=== PATIENT | male | born 1975 | race Caucasian/White ===

== ENCOUNTER 2016-09-12 14:18 | Emergency (ER) | payer OTHER ==
[~2016-09-12] VITALS: Ht 165.1 cm; Wt 82.6 kg
[~2016-09-12 14:18] MED LIST: AMLODIPINE BESYL5 MG; AUGMENTIN 875875 MG PO; CARVEDILOL12.5 MG PO; CELEXA40 MG PO; CIPRO500 MG PO; CIPROFLOXACIN250 M2 PO; CIPROFLOXACIN500 M1 PO; COLACE100 MG PO; DILAUDID 2 MG TA2 MG PO; FLAGYL500 MG PO; FLEXERIL PO; HYDROCHLOROTHIA25 M1; HYDROCHLOROTHIA25 M1 PO; HYDROCODONE-AP1 EAC6 PO; IBUPROFEN 600600 M1 PO; IBUPROFEN 800800 M1 PO; LISINOPRIL-HCT1 EAC2 PO; LISINOPRIL20 MG; LISINOPRIL40 MG PO; LORTAB 10 MG-3473 ML PO; MEDROLDOSEPACK PO; METOPROLOL SUCC25 M1 PO; NAPROSYN500 MG PO; NORCO 5-325 TA1 EACH PO; NORCO 7.5-3251 EACH PO; NORFLEX100 MG PO; NORVASC 5 MG TAB5 MG PO; ONDANSETRON HCL4 M2 PO; PERCOCET 5-3251 EACH PO; PERCOCET 7.5-31 EACH PO; PERCOCET PO; PHENERGAN 25 MG25 M1 PO; PREDNISONE 20 M20 M1 PO; PREDNISONE 20 M20 MG PO; PREDNISONE 5 MG5 M1 PO; TOPROL XL25 MG; ULTRAM 50MG TAB50 MG PO; ZOFRAN ODT4 M1 PO; ZOFRAN ODT4 MG PO
[2016-09-12] MEDS ORDERED: NORVASC10 MG PO (14:41)
[2016-09-12 14:52] LABS: ABSOLUTE NEUTROPHILS 10.3 thou/uL (1.4-8.2); BASOPHILS 0.2 % (0.0-2.0); HEMATOCRIT 39.5 % (42.0-52.0); HEMOGLOBIN 13.6 gm/dL (14.0-18.0); LYMPHOCYTES 14.9 % (24.0-44.0); MCHC 34.5 g/dL (28.0-37.0); MONOCYTES 8.8 % (1.0-8.0); PLATELET COUNT 328 thou/uL (150-400); POLYS 76.1 % (36.0-66.0); RBC 4.38 mil/uL (4.50-6.00); RDW 13.8 % (10.5-14.5); WBC 13.6 thou/uL (4.0-11.0)
[2016-09-12 14:53] LABS: MANUAL DIFF NO
[2016-09-12 14:58] LABS: CALCIUM 9.2 mg/dL (8.5-10.1); POTASSIUM 3.9 mmol/L (3.5-5.1)
[2016-09-12 15:02] LABS: ALBUMIN 3.8 g/dL (3.4-5.0); TOTAL BILIRUBIN 0.1 mg/dL (<0.1-1.0); TOTAL PROTEIN 6.9 g/dL (6.4-8.2)
[2016-09-12 16:36] LABS: URINE BILIRUBIN NEGATIVE (Negative); URINE BLOOD NEGATIVE (Negative); URINE COLOR YELLOW; URINE GLUCOSE-RANDOM* NEGATIVE (Negative); URINE KETONES NEGATIVE (Negative); URINE LEUKOCYTES-REFLEX NEGATIVE (Negative); URINE PROTEIN (DIPSTICK) NEGATIVE (Negative); URINE UROBILINOGEN 0.2 E.U./dl (0.2-1.0)
[2016-09-12] MEDS ORDERED: FLAGYL500 MG PO (17:41)
[2016-09-12] MEDS ORDERED: ONDANSETRON HCL4 M2 PO (17:41)
[2016-09-12] MEDS ORDERED: CIPRO500 MG PO (17:41)
== END 2016-09-12 18:18 | disposition home or self-care (01) ==
LOC: ER 14:18
PROVIDERS: Physician Assistant
DX: M54.5 Low back pain (principal); K57.92 Diverticulitis of intestine, part unspecified, without perforation or abscess without bleeding; D72.829 Elevated white blood cell count, unspecified; R74.0 Nonspecific elevation of levels of transaminase and lactic acid dehydrogenase [LDH]; I10 Essential (primary) hypertension; Z90.89 Acquired absence of other organs; Z90.49 Acquired absence of other specified parts of digestive tract; F17.220 Nicotine dependence, chewing tobacco, uncomplicated

== ENCOUNTER 2016-11-03 07:02 | Emergency (ER) | payer OTHER ==
[~2016-11-03] VITALS: Ht 165.1 cm; Wt 82.6 kg
[~2016-11-03 07:02] MED LIST changes: +NORVASC10 MG PO
[2016-11-03 07:57] LABS: ABSOLUTE NEUTROPHILS 4.2 thou/uL (1.4-8.2); BASOPHILS 0.6 % (0.0-2.0); EOSINOPHILS 1.8 % (0.0-3.0); HEMATOCRIT 40.5 % (42.0-52.0); HEMOGLOBIN 13.9 gm/dL (14.0-18.0); LYMPHOCYTES 16.3 % (24.0-44.0); MCH 31.1 pg (26.0-34.0); MCHC 34.3 g/dL (28.0-37.0); MCV 90.8 fL (80.0-100.0); MONOCYTES 9.9 % (1.0-8.0); PLATELET COUNT 273 thou/uL (150-400); POLYS 71.4 % (36.0-66.0); RBC 4.46 mil/uL (4.50-6.00); RDW 14.1 % (10.5-14.5); WBC 5.9 thou/uL (4.0-11.0)
[2016-11-03 07:58] LABS: MANUAL DIFF NO
[2016-11-03 08:04] LABS: CALCIUM 8.8 mg/dL (8.5-10.1); CREATININE 0.9 mg/dL (0.7-1.3); POTASSIUM 4.6 mmol/L (3.5-5.1)
[2016-11-03 08:10] LABS: PROTIME 9.4 Seconds (9.3-11.4)
[2016-11-03 08:16] LABS: URINE BILIRUBIN NEGATIVE (Negative); URINE BLOOD NEGATIVE (Negative); URINE COLOR YELLOW; URINE GLUCOSE-RANDOM* NEGATIVE (Negative); URINE KETONES NEGATIVE (Negative); URINE NITRITE NEGATIVE (Negative); URINE PROTEIN (DIPSTICK) NEGATIVE (Negative); URINE SPECIFIC GRAVITY <= 1.005 (1.003-1.035); URINE UROBILINOGEN 0.2 E.U./dl (0.2-1.0)
== END 2016-11-03 13:29 | disposition home or self-care (01) ==
LOC: ER 07:02
PROVIDERS: Emergency Medicine
DX: G89.29 Other chronic pain (principal); R10.13 Epigastric pain; R10.11 Right upper quadrant pain; I10 Essential (primary) hypertension; F17.220 Nicotine dependence, chewing tobacco, uncomplicated; Z90.89 Acquired absence of other organs; Z87.442 Personal history of urinary calculi; Z90.49 Acquired absence of other specified parts of digestive tract

== ENCOUNTER 2017-02-03 07:14 | Emergency (ER) | payer OTHER ==
[~2017-02-03] VITALS: Ht 165.1 cm; Wt 95.3 kg
[2017-02-03 07:39] LABS: ABSOLUTE NEUTROPHILS 5.6 thou/uL (1.4-8.2); BASOPHILS 1.1 % (0.0-2.0); EOSINOPHILS 2.1 % (0.0-3.0); HEMOGLOBIN 14.2 gm/dL (14.0-18.0); LYMPHOCYTES 13.6 % (24.0-44.0); MCH 31.8 pg (26.0-34.0); MCHC 35.5 g/dL (28.0-37.0); MCV 89.6 fL (80.0-100.0); PLATELET COUNT 303 thou/uL (150-400); POLYS 75.2 % (36.0-66.0); RBC 4.46 mil/uL (4.50-6.00); RDW 14.4 % (10.5-14.5); WBC 7.5 thou/uL (4.0-11.0)
[2017-02-03 07:43] LABS: MANUAL DIFF NO
[2017-02-03 07:48] LABS: CALCIUM 9.4 mg/dL (8.5-10.1); CREATININE 0.9 mg/dL (0.7-1.3); POTASSIUM 4.4 mmol/L (3.5-5.1)
[2017-02-03 07:54] LABS: ALBUMIN 3.7 g/dL (3.4-5.0); TOTAL BILIRUBIN 0.3 mg/dL (<0.1-1.0); TOTAL PROTEIN 7.3 g/dL (6.4-8.2)
[2017-02-03 08:50] LABS: URINE BILIRUBIN NEGATIVE (Negative); URINE BLOOD NEGATIVE (Negative); URINE COLOR YELLOW; URINE GLUCOSE-RANDOM* NEGATIVE (Negative); URINE KETONES NEGATIVE (Negative); URINE LEUKOCYTES-REFLEX NEGATIVE (Negative); URINE PROTEIN (DIPSTICK) NEGATIVE (Negative); URINE UROBILINOGEN 0.2 E.U./dl (0.2-1.0)
[2017-02-03] MEDS ORDERED: CIPROFLOXACIN500 M1 PO (09:33)
[2017-02-03] MEDS ORDERED: ZOFRAN ODT4 MG PO (09:33)
[2017-02-03] MEDS ORDERED: FLAGYL500 MG PO (09:33)
[2017-02-03] MEDS ORDERED: NORCO 5-325 TA1 EACH PO (09:33)
[2017-02-03] MEDS ORDERED: COLACE100 MG PO (09:33)
== END 2017-02-03 09:58 | disposition home or self-care (01) ==
LOC: ER 07:14
PROVIDERS: Emergency Medicine
DX: K57.92 Diverticulitis of intestine, part unspecified, without perforation or abscess without bleeding (principal); I10 Essential (primary) hypertension; F17.220 Nicotine dependence, chewing tobacco, uncomplicated; Z87.442 Personal history of urinary calculi; Z90.49 Acquired absence of other specified parts of digestive tract; Z98.890 Other specified postprocedural states

== ENCOUNTER 2017-02-05 07:48 | Emergency (ER) | payer OTHER ==
[~2017-02-05] VITALS: Ht 177.8 cm; Wt 83.9 kg
--- NOTE | ~2017-02-05 | EKG ---
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
[2017-02-05 08:28] LABS: ABSOLUTE NEUTROPHILS 4.9 thou/uL (1.4-8.2); BASOPHILS 1.1 % (0.0-2.0); EOSINOPHILS 2.2 % (0.0-3.0); HEMATOCRIT 40.5 % (42.0-52.0); HEMOGLOBIN 14.2 gm/dL (14.0-18.0); LYMPHOCYTES 14.4 % (24.0-44.0); MCH 31.6 pg (26.0-34.0); MCV 90.1 fL (80.0-100.0); MONOCYTES 7.3 % (1.0-8.0); PLATELET COUNT 285 thou/uL (150-400); RDW 14.4 % (10.5-14.5); WBC 6.6 thou/uL (4.0-11.0)
[2017-02-05 08:30] LABS: MANUAL DIFF NO
[2017-02-05 08:36] LABS: CALCIUM 9.2 mg/dL (8.5-10.1); POTASSIUM 5.3 mmol/L (3.5-5.1)
[2017-02-05 08:42] LABS: ALBUMIN 3.7 g/dL (3.4-5.0); TOTAL BILIRUBIN 0.2 mg/dL (<0.1-1.0); TOTAL PROTEIN 7.4 g/dL (6.4-8.2)
[2017-02-05] MEDS ORDERED: ZOFRAN ODT4 MG PO (10:54)
== END 2017-02-05 10:51 | disposition home or self-care (01) ==
LOC: ER 07:48
PROVIDERS: Emergency Medicine
DX: R10.32 Left lower quadrant pain (principal); R11.2 Nausea with vomiting, unspecified; R19.7 Diarrhea, unspecified; I10 Essential (primary) hypertension; F17.220 Nicotine dependence, chewing tobacco, uncomplicated; Z87.442 Personal history of urinary calculi; Z90.49 Acquired absence of other specified parts of digestive tract; Z90.89 Acquired absence of other organs

== ENCOUNTER 2017-02-07 11:32 | Emergency (ER) | payer OTHER ==
[~2017-02-07] VITALS: Ht 165.1 cm; Wt 95.3 kg
[2017-02-07 12:32] LABS: ABSOLUTE NEUTROPHILS 5.1 thou/uL (1.4-8.2); BASOPHILS 1.1 % (0.0-2.0); EOSINOPHILS 1.2 % (0.0-3.0); HEMATOCRIT 43.7 % (42.0-52.0); HEMOGLOBIN 14.9 gm/dL (14.0-18.0); MCV 91.2 fL (80.0-100.0); MONOCYTES 8.8 % (1.0-8.0); PLATELET COUNT 316 thou/uL (150-400); POLYS 68.9 % (36.0-66.0); RBC 4.79 mil/uL (4.50-6.00); RDW 14.3 % (10.5-14.5); WBC 7.4 thou/uL (4.0-11.0)
[2017-02-07 12:33] LABS: MANUAL DIFF NO
[2017-02-07 12:41] LABS: ANION GAP 5 mmol/L (7-16); BUN 12 mg/dL (7-18); CALCIUM 9.7 mg/dL (8.5-10.1); CHLORIDE 102 mmol/L (98-107); CO2 28 mmol/L (21-32); CREATININE 1.2 mg/dL (0.7-1.3); GLUCOSE 106 mg/dL (74-106); POTASSIUM 4.9 mmol/L (3.5-5.1); SODIUM 135 mmol/L (136-145)
[2017-02-07 12:54] LABS: ALBUMIN 4.2 g/dL (3.4-5.0); ALKALINE PHOSPHATASE 260 U/L (46-116); DIRECT BILIRUBIN < 0.1 mg/dL (<0.1-0.3); SGOT 51 U/L (15-37); SGPT 131 U/L (30-65); TOTAL BILIRUBIN 0.3 mg/dL (<0.1-1.0); TOTAL PROTEIN 7.9 g/dL (6.4-8.2)
[2017-02-07 13:45] LABS: URINE BILIRUBIN NEGATIVE (Negative); URINE BLOOD NEGATIVE (Negative); URINE COLOR YELLOW; URINE GLUCOSE-RANDOM* NEGATIVE (Negative); URINE KETONES NEGATIVE (Negative); URINE NITRITE NEGATIVE (Negative); URINE PROTEIN (DIPSTICK) NEGATIVE (Negative); URINE UROBILINOGEN 0.2 E.U./dl (0.2-1.0)
[2017-02-07] MEDS ORDERED: PHENERGAN 25 MG25 M1 PO (14:32)
== END 2017-02-07 15:08 | disposition home or self-care (01) ==
LOC: ER 11:32
PROVIDERS: Nurse Practitioner
DX: R10.32 Left lower quadrant pain (principal); R11.2 Nausea with vomiting, unspecified; R19.7 Diarrhea, unspecified; I10 Essential (primary) hypertension; F17.220 Nicotine dependence, chewing tobacco, uncomplicated; Z87.442 Personal history of urinary calculi; Z90.49 Acquired absence of other specified parts of digestive tract; Z98.890 Other specified postprocedural states

== ENCOUNTER 2017-10-17 04:15 | Emergency (ER) | payer OTHER ==
[~2017-10-17] VITALS: Ht 165.1 cm; Wt 86.6 kg
--- NOTE | ~2017-10-17 | EKG ---
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 : 1975 Requested By: Douglas Jordan Order Number: [id number] MD: Bandar Rodriguez Measurements Intervals [place] Rate: 94 P: 25 MA: 166 QRS: 17 QRSD: 93 T: 32 QT: 344 QTc: 431 Interpretive Statements Sinus rhythm No significant abnormality Compared to ECG 04/25/2017 12:57:36 Sinus tachycardia no longer present Electronically Signed On 10-18-2017 9:16:51 CDT by Bandar Rodriguez [email or web address] <ELECTRONICALLY SIGNED> By: Bandar Rodriguez MD, [facility] 10/18/17 0916 D: 04/438 043 Bandar Rodriguez MD, FACC /EPI
[~2017-10-17 04:15] MED LIST changes: +HYDRALAZINE 5050 MG PO; +LOPRESSOR50 PO; +PROTONIX40 M1 PO
[2017-10-17 04:47] LABS: RDW 19.3 % (10.5-14.5)
[2017-10-17 04:49] LABS: ABSOLUTE NEUTROPHILS 5.7 thou/uL (1.4-8.2); BASOPHILS 0.4 % (0.0-2.0); EOSINOPHILS 1.7 % (0.0-3.0); HEMATOCRIT 36.4 % (42.0-52.0); HEMOGLOBIN 12.1 gm/dL (14.0-18.0); LYMPHOCYTES 18.4 % (24.0-44.0); MCH 27.6 pg (26.0-34.0); MCHC 33.3 g/dL (28.0-37.0); MCV 82.8 fL (80.0-100.0); MONOCYTES 8.1 % (1.0-8.0); PLATELET COUNT 375 thou/uL (150-400); POLYS 71.4 % (36.0-66.0); RBC 4.39 mil/uL (4.50-6.00); WBC 7.9 thou/uL (4.0-11.0)
[2017-10-17] MEDS ORDERED: COREG25 MG PO (05:08)
[2017-10-17 05:13] LABS: CALCIUM 9.2 mg/dL (8.5-10.1); CREATININE 1.1 mg/dL (0.7-1.3); POTASSIUM 4.2 mmol/L (3.5-5.1)
[2017-10-17 05:18] LABS: ALBUMIN 3.9 g/dL (3.4-5.0); TOTAL BILIRUBIN 0.1 mg/dL (<0.1-1.0); TOTAL PROTEIN 7.6 g/dL (6.4-8.2)
[2017-10-17 05:34] LABS: URINE BILIRUBIN NEGATIVE (Negative); URINE BLOOD NEGATIVE (Negative); URINE CLARITY CLEAR; URINE COLOR YELLOW; URINE GLUCOSE-RANDOM* NEGATIVE (Negative); URINE KETONES NEGATIVE (Negative); URINE LEUKOCYTES-REFLEX NEGATIVE (Negative); URINE NITRITE-REFLEX NEGATIVE (Negative); URINE PROTEIN (DIPSTICK) NEGATIVE (Negative); URINE UROBILINOGEN 0.2 E.U./dl (0.2-1.0)
[2017-10-17 06:17] LABS: AMP/METHAMP Negative (Negative); BARBITURATES Negative (Negative); BENZODIAZEPINES Negative (Negative); COCAINE Negative (Negative); METHADONE Negative (Negative); OPIATES POSITIVE (Negative); PCP Negative (Negative)
[2017-10-17] MEDS ORDERED: KRISTALOSE20 GM PO (06:47)
== END 2017-10-17 06:51 | disposition home or self-care (01) ==
LOC: ER 04:15
PROVIDERS: Emergency Medicine
DX: K59.00 Constipation, unspecified (principal); F11.90 Opioid use, unspecified, uncomplicated; I10 Essential (primary) hypertension; Z90.89 Acquired absence of other organs; Z90.49 Acquired absence of other specified parts of digestive tract; Z87.442 Personal history of urinary calculi; F17.220 Nicotine dependence, chewing tobacco, uncomplicated